=== PATIENT | male | born 1960 | race Caucasian/White ===

== ENCOUNTER → 2024-03-23 14:28 | Outpatient (BNVA) | payer MEDICARE, MEDICAID, SELFPAY | PROVIDERS: Visit Provider Family Medicine | DX: M25.512 Pain in left shoulder; M54.2 Cervicalgia; E78.5 Hyperlipidemia, unspecified; J44.9 Chronic obstructive pulmonary disease, unspecified | CPT/HCPCS: 72040; 73030; 80053; 80061; 85025 ==

== ENCOUNTER → 2024-04-08 14:04 | Outpatient (BNVA) | payer MEDICARE, MEDICAID, SELFPAY | PROVIDERS: PCP Family Medicine; Referring Provider Family Medicine; Visit Provider Surgery | DX: Z12.11 Encounter for screening for malignant neoplasm of colon (principal) | CPT/HCPCS: 99024; 99203; 99204 ==

== ENCOUNTER 2024-05-13 09:54 | Day surgery (SDC) | payer MEDICARE, MEDICAID, SELFPAY ==
[2024-05-13 10:06] VITALS: BP 140/79; PULSE 67; RESP 16; TEMP 36.1; O2SAT 96; BMI 25.7
[2024-05-13] MEDS: sodium chloride 0.9% 1,000 ML 30 ML IV (10:15)
--- NOTE | 2024-05-13 10:20 | P.ANESASSM_ITS ---
Pre-Anesthetic Assessment Height/Weight: Height 1.8 m Weight 83.915 kg Temp Pulse Resp BP Pulse Ox O2 Del Method 97 F L 67 16 140/79 96 Room Air 05/13/24 10:05/13/24 10:05/13/24 10:06 05/13/24 10:06 05/13/24 10:05/13/24 10:06 Preop Diagnosis: screening Operation Date: 05/13/24 11:05 Proposed Procedures p Colonoscopy 64495, G0105, Z12.11(Not Applicable) - Victoriano Osborne MD Familial anesthetic complications: none Was Beta Taylor taken within 24 hours: N/A Was Clonidine taken within 24 hours: N/A Last intake: Intake Last Liquid Date 05/12/24 Last Liquid Time 22:00 Last Solid Date 05/11/24 Last Solid Time 21:00 Social Alcohol (3 beer per day) and Tobacco (1/2 ppd) Exam alert, oriented x 3, clear to auscultation bilaterally and regular rate & rhythm Airway Submandibular: within normal limits Cervical ROM: within normal limits Mallampati: Class II Dentition: full Pulmonary Chronic Obstructive Pulmonary Disease CV/HEM None reported None reported Hepatic None reported GI None reported Metabolic Hyperlipidemia [facility] None reported Neuropsych None reported Anesthetic Plan ASA status: 2 Anesthesia: MAC Medications/Allergies Home Medications Medication Instructions Recorded Confirmed Last Taken Type albuterol sulfate 90 mcg/actuation 2 puff inhalation Q6H PRN 03/23/24 05/13/24 05/12/24 Rx aerosol inhaler shortness of breath or wheezing #8.5 grams baclofen 20 mg tablet 20 mg PO DAILY 90 days #90 tabs 03/23/24 05/11/24 05/11/24 Rx budesonide-formoterol HFA 160 2 puff inhalation BID #10.2 grams 03/23/24 05/11/24 05/11/24 Rx mcg-4.5 mcg/actuation aerosol inhaler ibuprofen 800 mg tablet 800 mg PO BID 90 days #180 tabs 03/23/24 05/13/24 Rx montelukast 10 mg tablet 10 mg PO DAILY 90 days #90 tabs 03/23/24 05/13/24 05/12/24 Rx rosuvastatin 20 mg tablet 20 mg PO DAILY 90 days #90 tabs 03/23/24 05/13/24 05/12/24 Rx Allergies Allergy/AdvReac Type Severity Reaction Status Date / Time No Known Allergies Allergy Verified 05/11/24 09:53 Current Medications Generic Name Dose Route Start Last Admin Trade Name Freq PRN Reason Stop Dose Admin Sodium Chloride 1,000 mls @ 30 mls/hr 05/13/24 10:00 05/13/24 10:15 Sodium Chloride 0.9% IV 30 mls/hr .Q24H TONYA Administration PFSH Anesthesia Medical History COPD (chronic obstructive pulmonary disease) Asthma Surgical History History of rotator cuff surgery History of appendectomy Family History Mother Cancer Colon cancer and lung cancer Social History Smoking and tobacco/nicotine status: current every day tobacco/nicotine user cigarettes Packs smoked per day: 0.5 Years cigarettes smoked: 50 Data Anesthesia Cardiac Studies: No Data to Display
--- NOTE | 2024-05-13 10:24 | W.PM.OPSFHP ---
Same Day Surgery H&P Indication for Procedure/HPI DATE OF PROCEDURE: May 13, 2024 CHIEF COMPLAINT/INDICATIONFOR SURGICAL PROCEDURE: need for screening colonoscopy PREOP DIAGNOSIS: screening PLANNED PROCEDURE: Operation Date: 05/13/24 11:05 Proposed Procedures p Colonoscopy 15154, G0105, Z12.11(Not Applicable) - Victoriano Osborne MD Medications/Allergies* Allergies/Adverse Reactions Allergy/AdvReac Type Severity Reaction Status Date / Time No Known Allergies Allergy Verified 05/11/24 09:53 Current Medications: Generic Name Dose Route Start Last Admin Trade Name Freq PRN Reason Stop Dose Admin Sodium Chloride 1,000 mls @ 30 mls/hr 05/13/24 10:00 05/13/24 10:15 Sodium Chloride 0.9% IV 30 mls/hr .Q24H TONYA Administration Pertinent History/Comorbid Conditions* Medical History (Updated 03/23/24 @ 15:40 by Holly Brandt MD) COPD (chronic obstructive pulmonary disease) Asthma Surgical History (Updated 03/23/24 @ 14:25 by Holly Brandt MD) History of rotator cuff surgery History of appendectomy Family History (Updated 03/23/24 @ 13:46 by Phoebe Gordon CMA) Cancer Mother Colon cancer and lung cancer Social History Smoking and tobacco/nicotine status: current every day tobacco/nicotine user cigarettes Packs smoked per day: 0.5 Years cigarettes smoked: 50 Pertinent Exam Findings alert, oriented x 3, clear to auscultation bilaterally and regular rate & rhythm Recommendations Surgery/Procedure today Coding Level of Care Code Acute Code for Chg Fwd
[2024-05-13 10:47] VITALS: BP 111/66; PULSE 63; RESP 18; TEMP 36.3; O2SAT 99
[2024-05-13 11:07] VITALS: BP 112/67; PULSE 77; RESP 18; O2SAT 99
[2024-05-13 11:12] VITALS: BP 116/75; PULSE 67; RESP 18; O2SAT 99
--- NOTE | 2024-05-13 11:20 | ANE.PACU2 ---
Inpatient post-anesthesia follow up: Airway intact: Yes Vital signs: Temperature 97.3 F Pulse Rate 67 Respiratory Rate 18 Blood Pressure 116/75 Pulse Oximetry 99 Oxygen Delivery Me thod Room Air Oxygen Flow Rate 4 Fraction of Inspir ed Oxygen Hydration adequate: Yes Nausea and vomiting: No Pain level: 1 Mental status: Baseline
== END 2024-05-13 11:20 | disposition home or self-care (01) ==
PROVIDERS: PCP Family Medicine; Visit Provider Surgery
PROC: 0DJD8ZZ Inspection of Lower Intestinal Tract, Via Natural or Artificial Opening Endoscopic (ICD-10-PCS; CPT 45378; principal; 2024-05-13 11:05)
DX: Z12.11 Encounter for screening for malignant neoplasm of colon (principal); F17.210 Nicotine dependence, cigarettes, uncomplicated; J44.9 Chronic obstructive pulmonary disease, unspecified; E78.5 Hyperlipidemia, unspecified
CPT/HCPCS: G0121; J2250; J2704; J7030

== ENCOUNTER → 2024-12-16 12:54 | Outpatient (BNVA) | payer MEDICARE, MEDICAID, SELFPAY | PROVIDERS: Visit Provider Family Medicine | DX: N52.9 Male erectile dysfunction, unspecified (principal); Z12.5 Encounter for screening for malignant neoplasm of prostate; E78.2 Mixed hyperlipidemia; Z13.1 Encounter for screening for diabetes mellitus | CPT/HCPCS: 80053; 80061; 84402; 84403; G0103 ==

== ENCOUNTER 2025-08-25 16:55 | Outpatient (CLI) | payer MEDICARE, MEDICAID, SELFPAY ==
--- NOTE | 2025-08-25 17:17 | CT_ITS ---
WS: [id number] LDCT LUNG CANCER SCREENING HISTORY: SMOKER, 51 PK YR, SCREENING TECHNIQUE: Axial imaging performed from the apices to 1 cm below the costophrenic angles. Coronal and sagittal reformats are submitted with axial MIP series. All CT scans at [facility] use at least one of these dose optimization techniques: automated exposure control; mA and/or kV adjustment per patient size (includes targeted exams where dose is matched to clinical indication); or iterative reconstruction. DLP: 71.21 mGy.cm DIvol: Mean CTDIvol: 1.50 (mGy) COMPARISON: None available. Diagnostic quality: Satisfactory Lungs: Mild dependent changes at the lung bases. 5 mm pleural tag at the LEFT apex. Mild biapical pleural fibrosis. No mass or nodule. No endobronchial lesions. Heart: Normal size heart with no pericardial effusion.. Other findings: Mild atherosclerosis aorta. Normal size pulmonary artery and aorta. No pathologically enlarged lymph nodes. Benign calcified LEFT hilar lymph nodes. Gallbladder is contracted. Splenic granulomata. Bilobed RIGHT adrenal gland mass. Variable attenuation within the mass. The superior mass with low Hounsfield units suggesting an adenoma. Increased attenuation in the lower lobulated component. Adrenal mass measures 2.7 x 2.8 x 4.8 cm. LEFT adrenal gland is normal. There are additional small masses in the LEFT upper quadrant some which contain calcifications and are similar attenuation as the spleen. Probably splenules or may be from a prior spleen injury. CT/CT lung screening [id number] IMPRESSION: LUNG-RADS: 2S-Benign Appearance or Behavior with Significant Findings FOLLOW UP: 12 Month: Continue annual screening with LDCT OTHER FINDINGS (S MODIFIER): Lobulated heterogeneous RIGHT adrenal gland mass m easuring 2.7 x 2.8 x 4.8 cm. Recommend follow-up adrenal gland CT protocol with and without contrast. LEFT upper quadrant mass is associated with the spleen c an also be further evaluated at this time. Favor these are probably splenules r elated to the spleen.
== END 2025-08-25 16:56 | disposition home or self-care (01) ==
LOC: RAD 16:56
PROVIDERS: PCP Family Medicine; Visit Provider Family Medicine
DX: Z12.2 Encounter for screening for malignant neoplasm of respiratory organs (principal); Z87.891 Personal history of nicotine dependence; J84.10 Pulmonary fibrosis, unspecified; J94.9 Pleural condition, unspecified; E27.9 Disorder of adrenal gland, unspecified
CPT/HCPCS: 71271

== ENCOUNTER → 2025-08-31 14:00 | Outpatient (BNVA) | payer MEDICARE, MEDICAID, SELFPAY | PROVIDERS: PCP Family Medicine; Visit Provider Orthopaedic Surgery | DX: M19.012 Primary osteoarthritis, left shoulder (principal) | CPT/HCPCS: 73030; 99204 ==

== ENCOUNTER 2025-09-02 13:40 | Outpatient (CLI) | payer MEDICARE, MEDICAID, SELFPAY ==
--- NOTE | 2025-09-02 13:45 | CTR_ITS ---
PROCEDURE INFORMATION: Exam: CT Abdomen And Pelvis Without And With Contrast Exam date and time: 09/02/2025 2:23 PM Age: 65 years old Clinical indication: Abnormal findings; Abnormal radiologic finding of the abdomen; Radiologic exam and body structure: CT lung screen; Prior surgery; Surgery date: 6+ months; Surgery type: Appy; Additional info: Adrenal mass R on ldct; Spleen abnormality, adrenal gland protocol; Abnormal mass R adrenal on ldct; TECHNIQUE: Imaging protocol: Computed tomography of the abdomen and pelvis without and with contrast. Radiation optimization: All CT scans at this facility use at least one of these dose optimization techniques: automated exposure control; mA and/or kV adjustment per patient size (includes targeted exams where dose is matched to clinical indication); or iterative reconstruction. Contrast material: OMNI 350; Contrast volume: 100 ml; Contrast route: INTRAVENOUS (IV); COMPARISON: CT lung screening [id number] 08/25/2025 5:20 PM RADIATION DOSE METRICS: Total DLP (mGy-cm): 1068.5 FINDINGS: Liver: Normal. No mass. Gallbladder and biliary ducts: Normal. No calcified stones. No ductal dilation. Pancreas: Normal. No ductal dilation. Spleen: Normal. No splenomegaly. Adrenal glands: There are 2 right adrenal nodules. The largest is approximately 3 cm in diameter. This has an absolute washout of 76%, relative washout of 60%, is compatible with a nonfunctioning adenoma. The 2nd nodule is approximately 2.6 cm in maximum dimension. This has an absolute and relative washout of 75%. This is also likely a lipid rich benign functioning adenoma. Kidneys and ureters: Normal. No hydronephrosis. Stomach and bowel: Unremarkable. No obstruction. No mucosal thickening. Appendix: No evidence of appendicitis. Intraperitoneal space: Unremarkable. No free air. No significant fluid collection. Vasculature: Unremarkable. No abdominal aortic aneurysm. Lymph nodes: Unremarkable. No enlarged lymph nodes. Urinary bladder: Unremarkable as visualized. Reproductive: Unremarkable as visualized. Bones/joints: Unremarkable. No acute fracture. Soft tissues: Unremarkable. Other findings: CT/CT abdomen wo/w con [id number] IMPRESSION: Based on washout characteristics each right adrenal nodule is likely a lipid rich non functioning adenoma.
[2025-09-02 14:22] LABS: Blood Urea Nitrogen 11 mg/dL (8-23)
[2025-09-02] MEDS: iohexol 350 mg/mL 500 mL Btl (per mL) IV (14:33)
== END 2025-09-02 13:41 | disposition home or self-care (01) ==
LOC: RAD 13:46
PROVIDERS: PCP Family Medicine; Visit Provider Family Medicine
DX: E27.8 Other specified disorders of adrenal gland (principal); D73.89 Other diseases of spleen; Z98.890 Other specified postprocedural states
CPT/HCPCS: 74170; 82565; 84520

== ENCOUNTER 2025-09-15 14:43 | Outpatient (CLI) | payer MEDICARE, MEDICAID, SELFPAY ==
--- NOTE | 2025-09-15 15:15 | MR_ITS ---
WS: [id number] MRI LEFT SHOULDER HISTORY: Left shoulder pain COMPARISON: 08/31/2025 TECHNIQUE: Multiplanar sequences of the shoulder joint are submitted. 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 Hypertrophic bone formation with narrowing at the AC joint. Mild synovitis. Small amount of fluid in the subacromial and subdeltoid bursa. Mild subacromial impingement. No os acromion. Mild atrophy of the biceps tendon but the biceps tendon remains appropriately p ositioned in the bicipital groove. Abnormal signal in the biceps tendon through the rotator cuff interval. There is marked thickening and increased signal within the tendon. Normal position of the humeral head. Mild narrowing of the glenohumeral joint. No rotator cuff muscle atrophy. Thinning of the distal subscapularis tendon as it approaches the rotator cuff interval. Heterogeneous signal in the distal supraspinatus tendon beginning along the medial humeral head and extending distally. Significant tendinopathy and fraying along both the articular and bursal surfaces of the tendon. There is an insertion site tear without retraction. Mild tendinopathy of the distal infraspinatus tendon. No tear. Coracohumeral ligament appears intact. There is a large amount of increased T2 signal in through the rotator cuff interval. Increased signal within the middle glenohumeral ligament. No labral tear. Small amount of fluid in the axillary recess. Osteophyte with subchondral cystic changes in the lesser tuberosity. MR/MR shoulder LT wo con* [id number] IMPRESSION: 1. 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 2. Abnormal rotator cuff interval. Increased T2 signal with loss of the normal morphology of the biceps tendon and the subscapularis tendons throughout the r otator cuff interval. Very small caliber biceps tendon and partial tear with te nosynovitis expected. The biceps tendon appears medially displaced with respect to the subscapularis tendon. 3. Subscapularis tendon is being displaced from humeral head osteophytes and a large amount of tendinopathy and surrounding edema. Marked tendinopathy in the distal subscapularis tendon. 4. Marked bursal and articular surface fraying of the distal supraspinatus ten don extending over a length of several centimeters with a small insertion site tear.
== END 2025-09-15 14:44 | disposition home or self-care (01) ==
LOC: RAD 14:43
PROVIDERS: PCP Family Medicine; Visit Provider Orthopaedic Surgery
DX: M25.512 Pain in left shoulder (principal); M19.012 Primary osteoarthritis, left shoulder; M75.31 Calcific tendinitis of right shoulder; M75.22 Bicipital tendinitis, left shoulder; S46.012A Strain of muscle(s) and tendon(s) of the rotator cuff of left shoulder, initial encounter; X58.XXXA Exposure to other specified factors, initial encounter; M67.813 Other specified disorders of tendon, right shoulder; M62.522 Muscle wasting and atrophy, not elsewhere classified, left upper arm
CPT/HCPCS: 73221